=== PATIENT | male | born 1980 | race Caucasian/White ===

== ENCOUNTER 2020-08-21 12:40 | Inpatient (IN) | payer OTHER ==
[~2020-08-21] VITALS: Ht 193 cm; Wt 113.6 kg
[2020-08-21 17:00] VITALS: BP 146/70
[2020-08-21] MEDS ORDERED: MORPHINE SULF INJ 2 MG/ML SYRINGE 1ML IV PRN (17:30)
[2020-08-21] MEDS ORDERED: NITROGLYCERIN 0.4 MG SL TAB SL PRN (17:30)
[2020-08-21] MEDS ORDERED: ONDANSETRON HCL 4 MG/2 ML VIAL IV PRN (17:30)
[2020-08-21 18:28] LABS: Basophils # (auto) 0 10 ^3/uL (0-0.2); Basophils % (auto) 0.8 % (0.0-2.0); Eosinophils # (auto) 0.1 10 ^3/uL (0-0.8); Eosinophils % (auto) 1.2 % (0.0-7.0); Hematocrit 40.8 % (41.0-53.0); Hemoglobin 14.1 g/dL (13.5-17.5); Lymphocytes # (auto) 1.9 10 ^3/uL (0.4-5.4); Lymphocytes % (auto) 36.5 % (10.0-50.0); Mean Corpuscular Hemoglobin 31.4 pg (28.0-32.0); Mean Corpuscular Hgb Conc. 34.6 g/dL (32.0-36.0); Mean Corpuscular Volume 90.7 fL (80.0-100.0); Monocytes # (auto) 0.5 10 ^3/uL (0-1.3); Monocytes % (auto) 9.8 % (0.0-12.0); Neutrophils # (auto) 2.7 10 ^3/uL (1.6-8.6); Neutrophils % (auto) 51.7 % (37.0-80.0); Nucleated Red Blood Cells % 0.2 %; Platelet Count (auto) 268 10^3/uL (140-450); Red Cell Distribution Width 13.2 % (11.8-14.3); White Blood Cell 5.3 10^3/uL (4.4-10.8)
[2020-08-21 18:43] LABS: INR 1.03 (0.9-1.15); Partial Thromboplastin Time 24.1 sec (23.0-31.2)
[2020-08-21 18:44] LABS: Albumin 3.8 g/dL (3.4-5.0); BUN/Creatinine Ratio 10.3; Calcium 8.8 mg/dL (8.5-10.1)
[2020-08-21 18:47] LABS: Bilirubin, Total 0.5 mg/dL (0.2-1.0); Total Protein 7.4 g/dL (6.4-8.2)
[2020-08-21 22:04] VITALS: BP 128/71
[2020-08-22 04:53] VITALS: BP 127/79
[2020-08-22 08:06] VITALS: BP 131/76
[2020-08-22 09:00] VITALS: BP 131/76
[2020-08-22] MEDS: ENOXAPARIN SOD 30 MG/0.3 ML SYRINGE SC SCH (10:16)
[2020-08-22 13:00] VITALS: BP 125/60
[2020-08-22 17:00] VITALS: BP 131/64
[2020-08-22 22:00] VITALS: BP 123/70
[2020-08-23 05:00] VITALS: BP 116/67
[2020-08-23 08:06] VITALS: BP 118/57
[2020-08-23 09:00] VITALS: BP 118/57
[2020-08-23] MEDS: ENOXAPARIN SOD 30 MG/0.3 ML SYRINGE SC SCH (11:57)
[2020-08-23 14:50] VITALS: BP 113/68
[2020-08-23 17:00] VITALS: BP 112/66
[2020-08-23 22:00] VITALS: BP 118/68
[2020-08-24 05:00] VITALS: BP 115/70
[2020-08-24 09:00] VITALS: BP_SYST 113; BP_SYST 125; BP_DIAS 70; BP_DIAS 82
[2020-08-24] MEDS: ENOXAPARIN SOD 30 MG/0.3 ML SYRINGE SC SCH (09:58)
[2020-08-24 13:00] VITALS: BP 122/71
[2020-08-24 17:00] VITALS: BP 129/75
[2020-08-24 22:00] VITALS: BP 118/68
[2020-08-25 05:00] VITALS: BP 125/70
[2020-08-25 07:50] VITALS: BP 120/74
[2020-08-25 08:32] VITALS: BP 124/73
[2020-08-25] MEDS: ENOXAPARIN SOD 30 MG/0.3 ML SYRINGE SC SCH (09:54)
[2020-08-25 13:00] VITALS: BP 113/62
[2020-08-25 16:59] VITALS: BP 121/89
[2020-08-25 22:00] VITALS: BP 108/58
[2020-08-26 05:00] VITALS: BP 127/78
[2020-08-26 08:25] VITALS: BP 131/73
[2020-08-26 09:00] VITALS: BP 131/73
[2020-08-26] MEDS: ENOXAPARIN SOD 30 MG/0.3 ML SYRINGE SC SCH (09:40)
[2020-08-26 12:57] VITALS: BP 125/73
[2020-08-26 16:38] VITALS: BP 120/71
[2020-08-26] MEDS ORDERED: BISACODYL 5 MG EC TAB PO ONE (17:00)
[2020-08-26 22:00] VITALS: BP 123/59
[2020-08-27 05:00] VITALS: BP 113/70
[2020-08-27 07:40] VITALS: BP 116/67
[2020-08-27 09:00] VITALS: BP 116/67
[2020-08-27] MEDS: HYDROcodone-ACET 10/325MG TAB PO PRN ×2 (10:24→18:31)
[2020-08-27] MEDS: ENOXAPARIN SOD 30 MG/0.3 ML SYRINGE SC SCH (10:25)
[2020-08-27 13:00] VITALS: BP 114/70
[2020-08-27] MEDS ORDERED: GOLYTELY 4L KIT PO SCH (16:00)
[2020-08-27 17:00] VITALS: BP 119/67
[2020-08-27 22:00] VITALS: BP 124/67
[2020-08-28 00:14] LABS: Urine Bacteria NONE SEEN /hpf (None Seen); Urine Blood Negative /uL (Negative); Urine Specific Gravity 1.002 (1.001-1.035); Urine WBC <1 /hpf (0 - 3)
[2020-08-28 05:00] VITALS: BP 124/67
[2020-08-28] MEDS: HYDROcodone-ACET 10/325MG TAB PO PRN ×4 (05:29→20:52)
[2020-08-28 08:02] VITALS: BP 106/65
[2020-08-28] MEDS ORDERED: SODIUM CHLORIDE LOCK 10 ML ONE (08:04)
[2020-08-28] MEDS ORDERED: diphenhdrAMINE HCL 50 MG/1 ML VL ONE (08:04)
[2020-08-28] MEDS: fentaNYL CITRATE 100 MCG/2 ML VL ONE ×3 (08:48→08:54)
[2020-08-28] MEDS: MIDAZOLAM HCL 5 MG/ML-1ML VIAL ONE ×3 (08:48→08:54)
[2020-08-28] MEDS: ENOXAPARIN SOD 30 MG/0.3 ML SYRINGE SC SCH (11:36)
[2020-08-28 13:46] VITALS: BP 109/49
[2020-08-28 17:12] VITALS: BP 118/64
[2020-08-28 22:00] VITALS: BP 126/72
[2020-08-29] MEDS: HYDROcodone-ACET 10/325MG TAB PO PRN ×3 (04:13→20:20)
[2020-08-29 05:00] VITALS: BP 121/62
[2020-08-29 08:00] VITALS: BP 108/57
[2020-08-29 09:00] VITALS: BP 108/57
[2020-08-29] MEDS: ENOXAPARIN SOD 30 MG/0.3 ML SYRINGE SC SCH (10:29)
[2020-08-29 12:30] VITALS: BP 119/58
[2020-08-29] MEDS: traMADol HCL 50 MG TAB PO PRN (18:36)
[2020-08-29 22:00] VITALS: BP 130/67
[2020-08-29] MEDS: HYDROCORTISONE 2.5% TOPICAL CREAM 30GM TUBE TOP SCH (22:01)
[2020-08-30] VITALS (7 sets, daily range): BP systolic 107–126; BP diastolic 49–84
[2020-08-30] MEDS: HYDROCORTISONE 2.5% TOPICAL CREAM 30GM TUBE TOP SCH ×2 (09:42→23:09)
[2020-08-30] MEDS: ENOXAPARIN SOD 30 MG/0.3 ML SYRINGE SC SCH (09:42)
[2020-08-30] MEDS: HYDROcodone-ACET 10/325MG TAB PO PRN ×3 (09:42→19:57)
[2020-08-30] MEDS: traMADol HCL 50 MG TAB PO PRN (21:10)
[2020-08-31] MEDS: HYDROcodone-ACET 10/325MG TAB PO PRN ×5 (00:02→21:28)
[2020-08-31 05:00] VITALS: BP 126/67
[2020-08-31 08:00] VITALS: BP 121/65
[2020-08-31 08:23] VITALS: BP 127/65
[2020-08-31] MEDS: ENOXAPARIN SOD 30 MG/0.3 ML SYRINGE SC SCH (10:32)
[2020-08-31] MEDS: HYDROCORTISONE 2.5% TOPICAL CREAM 30GM TUBE TOP SCH ×2 (10:32→21:27)
[2020-08-31 13:00] VITALS: BP 128/72
[2020-08-31 16:09] VITALS: BP 124/84
[2020-08-31 20:00] VITALS: BP 121/69
[2020-08-31] MEDS: traMADol HCL 50 MG TAB PO PRN (23:42)
[2020-08-31] MEDS: SODIUM CHLORIDE 0.9% 1,000 ML IV SCH (23:42)
[2020-09-01] MEDS ORDERED: FLEET ENEMA(ADULT) 135 ML PR ONE
[2020-09-01 05:00] VITALS: BP 112/69
[2020-09-01 08:01] LABS: Basophils # (auto) 0.1 10 ^3/uL (0-0.2); Basophils % (auto) 1.2 % (0.0-2.0); Eosinophils # (auto) 0.1 10 ^3/uL (0-0.8); Eosinophils % (auto) 2.5 % (0.0-7.0); Hematocrit 42.7 % (41.0-53.0); Hemoglobin 15.1 g/dL (13.5-17.5); Lymphocytes # (auto) 1.6 10 ^3/uL (0.4-5.4); Lymphocytes % (auto) 35.9 % (10.0-50.0); Mean Corpuscular Hemoglobin 31.8 pg (28.0-32.0); Mean Corpuscular Hgb Conc. 35.3 g/dL (32.0-36.0); Monocytes # (auto) 0.5 10 ^3/uL (0-1.3); Monocytes % (auto) 11.4 % (0.0-12.0); Neutrophils # (auto) 2.2 10 ^3/uL (1.6-8.6); Nucleated Red Blood Cells % 0.1 %; Platelet Count (auto) 302 10^3/uL (140-450); Red Blood Cells 4.75 10^6/uL (4.5-5.90); Red Cell Distribution Width 13.1 % (11.8-14.3); White Blood Cell 4.6 10^3/uL (4.4-10.8)
[2020-09-01] MEDS: HYDROcodone-ACET 10/325MG TAB PO PRN ×3 (08:13→21:55)
[2020-09-01 08:22] LABS: INR 1.01 (0.9-1.15)
[2020-09-01 08:26] LABS: Albumin 3.9 g/dL (3.4-5.0); Calcium 9.2 mg/dL (8.5-10.1); Potassium 3.9 mmol/L (3.5-5.1)
[2020-09-01 08:29] LABS: BUN/Creatinine Ratio 9.9; Bilirubin, Total 0.6 mg/dL (0.2-1.0); Total Protein 7.9 g/dL (6.4-8.2)
[2020-09-01 08:58] VITALS: BP 134/67
[2020-09-01] MEDS: ENOXAPARIN SOD 30 MG/0.3 ML SYRINGE SC SCH (10:00)
[2020-09-01] MEDS: HYDROCORTISONE 2.5% TOPICAL CREAM 30GM TUBE TOP SCH ×2 (10:12→20:45)
[2020-09-01] MEDS: SODIUM CHLORIDE 0.9% 1,000 ML IV SCH (11:30)
[2020-09-01 12:49] VITALS: BP 126/62
[2020-09-01 16:47] VITALS: BP 134/78
[2020-09-01] MEDS ORDERED: BUPIVACAINE HCL 0 ML ONE (17:26)
[2020-09-01] MEDS ORDERED: LIDOCAINE 1% HCL (LOCAL ANESTH.) INJ 20ML MDV ONE (17:26)
[2020-09-01] MEDS ORDERED: GELATIN 1 SPONGE SIZE 100 TOP ONE (17:26)
[2020-09-01 22:44] VITALS: BP 130/71
[2020-09-02] MEDS: SODIUM CHLORIDE 0.9% 1,000 ML IV SCH ×2 (02:58→16:00)
[2020-09-02] MEDS: HYDROcodone-ACET 10/325MG TAB PO PRN ×4 (03:01→17:23)
[2020-09-02 05:00] VITALS: BP 133/72
[2020-09-02 08:49] VITALS: BP 105/54
[2020-09-02] MEDS: ENOXAPARIN SOD 30 MG/0.3 ML SYRINGE SC SCH (09:21)
[2020-09-02] MEDS: HYDROCORTISONE 2.5% TOPICAL CREAM 30GM TUBE TOP SCH ×2 (09:21→21:24)
[2020-09-02 12:58] VITALS: BP 127/72
[2020-09-02 17:00] VITALS: BP 118/75
[2020-09-02 22:00] VITALS: BP 122/70
[2020-09-03] VITALS (57 sets, daily range): BP systolic 92–193; BP diastolic 50–111
[2020-09-03] MEDS: SODIUM CHLORIDE 0.9% 1,000 ML IV SCH ×2 (04:42→18:48)
[2020-09-03] MEDS ORDERED: BUPIVACAINE HCL 50 ML ONE (07:07)
[2020-09-03] MEDS: LIDOCAINE 1% HCL (LOCAL ANESTH.) INJ 20ML MDV ONE ×2 (07:07→08:05)
[2020-09-03] MEDS ORDERED: MIDAZOLAM HCL 1MG/1ML-2 ML VIAL ONE (07:12)
[2020-09-03] MEDS ORDERED: fentaNYL CITRATE 100 MCG/2 ML VL ONE ×2 (07:12→08:12)
[2020-09-03] MEDS ORDERED: SUCCINYLCHOLINE CHLORIDE 20 MG/ML 10ML VIAL IV ONE (07:22)
[2020-09-03] MEDS ORDERED: LIDOCAINE 2% (LOCAL ANESTH.) PF 5ml SDV ONE (07:34)
[2020-09-03] MEDS ORDERED: PROPOFOL 10 MG/ML 20 ML IV ONE (07:34)
[2020-09-03] MEDS ORDERED: ROCURONIUM 10MG/ML 10ML VIAL IV ONE ×2 (07:35→09:38)
[2020-09-03] MEDS ORDERED: CIPROFLOXACIN 400MG/200ML 200 ML IV ONE (08:04)
[2020-09-03] MEDS ORDERED: metroNIDAZOLE 500MG/100ML 100 ML IV ONE (08:15)
[2020-09-03] MEDS ORDERED: GELATIN 1 SPONGE SIZE 50 TOP ONE (08:27)
[2020-09-03] MEDS ORDERED: GELATIN 1 SPONGE SIZE 100 TOP ONE (08:27)
[2020-09-03] MEDS ORDERED: OXYCODONE W/ ACETAMINOPHEN 5/325MG TABLET PO PRN (09:00)
[2020-09-03] MEDS ORDERED: MORPHINE SULF INJ 2 MG/ML SYRINGE 1ML IV PRN (09:00)
[2020-09-03] MEDS: ENOXAPARIN SOD 30 MG/0.3 ML SYRINGE SC SCH (10:00)
[2020-09-03] MEDS ORDERED: PROPOFOL 100 ML IV ONE (10:47)
[2020-09-03] MEDS: PROPOFOL 100 ML IV SCH ×2 (11:00→22:17)
[2020-09-03] MEDS ORDERED: fentaNYL Drip 2500mCg/250mlNS 250 ML IV ONE (11:56)
[2020-09-03] MEDS ORDERED: hydrALAZINE HCL 20 MG/ML VL IV PRN (12:00)
[2020-09-03] MEDS: fentaNYL Drip 2500mCg/250mlNS 250 ML IV SCH (12:30)
[2020-09-03] MEDS: diphenhdrAMINE HCL 50 MG/1 ML VL IV SCH (21:13)
[2020-09-03] MEDS ORDERED: methylPREDNISolone SOD SUCC 125 MG/2 ML VL IV SCH (22:00)
[2020-09-04] VITALS (55 sets, daily range): BP systolic 88–155; BP diastolic 45–85
[2020-09-04] MEDS: PROPOFOL 100 ML IV SCH ×2 (02:54→08:00)
[2020-09-04] MEDS: SODIUM CHLORIDE 0.9% 1,000 ML IV SCH ×3 (02:54→22:26)
[2020-09-04 04:07] LABS: Basophils # (auto) 0 10 ^3/uL (0-0.2); Basophils % (auto) 0.4 % (0.0-2.0); Eosinophils # (auto) 0 10 ^3/uL (0-0.8); Eosinophils % (auto) 0.1 % (0.0-7.0); Hematocrit 41.7 % (41.0-53.0); Hemoglobin 14.1 g/dL (13.5-17.5); Lymphocytes # (auto) 0.5 10 ^3/uL (0.4-5.4); Lymphocytes % (auto) 6.4 % (10.0-50.0); Mean Corpuscular Hemoglobin 30.9 pg (28.0-32.0); Mean Corpuscular Hgb Conc. 33.9 g/dL (32.0-36.0); Mean Corpuscular Volume 91.1 fL (80.0-100.0); Monocytes # (auto) 0.1 10 ^3/uL (0-1.3); Monocytes % (auto) 1.2 % (0.0-12.0); Neutrophils # (auto) 6.5 10 ^3/uL (1.6-8.6); Neutrophils % (auto) 91.9 % (37.0-80.0); Nucleated Red Blood Cells % 0.1 %; Platelet Count (auto) 270 10^3/uL (140-450); Red Blood Cells 4.57 10^6/uL (4.5-5.90); Red Cell Distribution Width 13.2 % (11.8-14.3)
[2020-09-04 04:27] LABS: Albumin 3.2 g/dL (3.4-5.0); Calcium 8.7 mg/dL (8.5-10.1); Potassium 4.3 mmol/L (3.5-5.1)
[2020-09-04 04:32] LABS: BUN/Creatinine Ratio 9.2; Bilirubin, Total 0.4 mg/dL (0.2-1.0); Total Protein 7.1 g/dL (6.4-8.2)
[2020-09-04] MEDS: fentaNYL Drip 2500mCg/250mlNS 250 ML IV SCH (06:33)
[2020-09-04] MEDS ORDERED: methylPREDNISolone SOD SUCC 125 MG/2 ML VL IV SCH (09:00)
[2020-09-04] MEDS: ENOXAPARIN SOD 30 MG/0.3 ML SYRINGE SC SCH (10:58)
[2020-09-04] MEDS: diphenhdrAMINE HCL 50 MG/1 ML VL IV SCH ×2 (10:58→22:25)
[2020-09-04] MEDS: PANTOPRAZOLE 40 MG/10 ML VIAL INJ IV SCH (10:58)
[2020-09-04] MEDS: methylPREDNISolone SOD SUCC 125 MG/2 ML VL IV SCH ×2 (10:58→22:25)
[2020-09-05] MEDS: OXYCODONE W/ ACETAMINOPHEN 5/325MG TABLET PO PRN ×2 (02:48→19:27)
[2020-09-05 04:51] VITALS: BP 130/77
[2020-09-05 08:00] VITALS: BP 138/81
[2020-09-05] MEDS ORDERED: SENNA 8.6 MG TAB PO PRN (08:00)
[2020-09-05] MEDS: MILK OF MAGNESIA 30ML SUSP PO PRN ×2 (08:28→17:28)
[2020-09-05 08:35] VITALS: BP 138/81
[2020-09-05] MEDS: diphenhdrAMINE HCL 50 MG/1 ML VL IV SCH (09:28)
[2020-09-05] MEDS: PANTOPRAZOLE 40 MG/10 ML VIAL INJ IV SCH (09:28)
[2020-09-05] MEDS: ENOXAPARIN SOD 30 MG/0.3 ML SYRINGE SC SCH (09:29)
[2020-09-05] MEDS: methylPREDNISolone SOD SUCC 125 MG/2 ML VL IV SCH (09:29)
[2020-09-05] MEDS: SODIUM CHLORIDE 0.9% 1,000 ML IV SCH ×2 (09:30→22:00)
[2020-09-05 12:00] VITALS: BP 134/81
[2020-09-05] MEDS: DOCUSATE SOD 100 MG CAP PO SCH ×2 (14:36→21:00)
[2020-09-05 17:08] VITALS: BP 148/80
[2020-09-05 22:00] VITALS: BP 140/79
[2020-09-06] MEDS: DOCUSATE SOD 100 MG CAP PO SCH ×3 (06:17→21:10)
[2020-09-06] MEDS: OXYCODONE W/ ACETAMINOPHEN 5/325MG TABLET PO PRN ×2 (08:06→13:48)
[2020-09-06 09:00] VITALS: BP 150/87
[2020-09-06] MEDS: PANTOPRAZOLE 40 MG/10 ML VIAL INJ IV SCH (09:56)
[2020-09-06] MEDS: ENOXAPARIN SOD 30 MG/0.3 ML SYRINGE SC SCH (09:56)
[2020-09-06] MEDS: SODIUM CHLORIDE 0.9% 1,000 ML IV SCH (12:26)
[2020-09-06 12:55] VITALS: BP 146/89
[2020-09-06 16:55] VITALS: BP 143/90
[2020-09-06] MEDS: LACTULOSE 20Gm/30ML SOLN PO SCH ×2 (17:30→21:10)
[2020-09-06] MEDS: HYDROcodone-ACET 10/325MG TAB PO PRN ×2 (17:36→21:10)
[2020-09-06 22:00] VITALS: BP 133/69
[2020-09-07] MEDS: LACTULOSE 20Gm/30ML SOLN PO SCH ×5 (02:00→10:00)
[2020-09-07] MEDS: HYDROcodone-ACET 10/325MG TAB PO PRN ×3 (02:08→11:47)
[2020-09-07] MEDS: SODIUM CHLORIDE 0.9% 1,000 ML IV SCH (02:14)
[2020-09-07 05:00] VITALS: BP 133/77
[2020-09-07] MEDS: DOCUSATE SOD 100 MG CAP PO SCH (06:51)
[2020-09-07 08:43] VITALS: BP 140/74
[2020-09-07] MEDS: PANTOPRAZOLE 40 MG/10 ML VIAL INJ IV SCH (09:44)
[2020-09-07] MEDS: ENOXAPARIN SOD 30 MG/0.3 ML SYRINGE SC SCH (09:45)
[2020-09-07] MEDS ORDERED: LACT10SO3 PO (11:15)
[2020-09-07] MEDS ORDERED: HYDR-4072 PO (11:15)
[2020-09-07 12:51] VITALS: BP 139/82
== END 2020-09-07 14:18 | DRG 347 ==
LOC: EEVIPCON 15:29 → EAST 15:29 → WEST WING 08-22 02:19 → TELE-EAST 09-01 01:59 → EAST 09-01 03:16 → ICU WEST 09-03 10:46 → TELE-EAST 09-04 17:21 → EAST 09-06 14:42
PROVIDERS: ADMIT Internal Medicine; ATTEND Internal Medicine
PROC: 0DJD8ZZ Inspection of Lower Intestinal Tract, Via Natural or Artificial Opening Endoscopic (ICD-10-PCS; principal; 2020-08-28 08:45)
PROC: 06BY0ZC Excision of Hemorrhoidal Plexus, Open Approach (ICD-10-PCS; 2020-09-03)
PROC: 3E0T3BZ Introduction of Anesthetic Agent into Peripheral Nerves and Plexi, Percutaneous Approach (ICD-10-PCS; 2020-09-03)
PROC: 5A1945Z Respiratory Ventilation, 24-96 Consecutive Hours (ICD-10-PCS; 2020-09-03)
PROC: 0BH17EZ Insertion of Endotracheal Airway into Trachea, Via Natural or Artificial Opening (ICD-10-PCS; 2020-09-03)
DX: K64.8 Other hemorrhoids (principal); J96.01 Acute respiratory failure with hypoxia; U07.1 COVID-19; J98.11 Atelectasis; T78.2XXA Anaphylactic shock, unspecified, initial encounter; K64.4 Residual hemorrhoidal skin tags; K42.9 Umbilical hernia without obstruction or gangrene; I10 Essential (primary) hypertension; K57.30 Diverticulosis of large intestine without perforation or abscess without bleeding; K59.00 Constipation, unspecified; T78.3XXA Angioneurotic edema, initial encounter; Z53.9 Procedure and treatment not carried out, unspecified reason; Z82.49 Family history of ischemic heart disease and other diseases of the circulatory system
CPT/HCPCS: 36415; 36600; 45378; 71045; 80053; 81001; 82805; 85025; 85610; 85730; 86850; 86900; 86901; 87070; 87081; 87205; 94002; 94003; C9113; G0378; J0330; J2001; J2250; J2405; J2704; J3490